=== PATIENT | female | born 1965 | race Caucasian/White ===

== ENCOUNTER → 2021-12-26 | Outpatient (CLI) | payer MEDICARE, BC ==
[2021-12-27 12:22] LABS: Candida species (DNA Probe) Positive (NEGATIVE); G. vaginalis (DNA Probe) Negative (NEGATIVE); T. vaginalis (DNA Probe) Negative (NEGATIVE)
== END ==
LOC: LAB 14:05 → LAB SHORT 14:05
PROVIDERS: Family Medicine
DX: N89.8 Other specified noninflammatory disorders of vagina (principal)
CPT/HCPCS: 87480; 87510; 87660

== ENCOUNTER 2024-08-08 08:33 | Day surgery (SDC) | payer MEDICARE, BC ==
[~2024-08-08] VITALS: Ht 180.3 cm; Wt 88.7 kg
[~2024-08-08 08:33] MED LIST: BUPRENORPHN-NA1 EACH; CLIMARA1 EACH; EZET10; GABA300; LEVSOD75 PO; Lactated Ringer's 1,000 ML IV ONE; Lidocaine 1%-Epineph 1:100000 20 ML MDV ONE; OMEP20ER; TIZA4; TRAZ50; Ventolin5 MG/1 ML
[2024-08-08] MEDS ORDERED: CeFAZolin Sodium 2,000 MG VIAL ONE (08:39)
[2024-08-08] MEDS ORDERED: Tranexamic Acid 100 ML IV ONE (08:40)
[2024-08-08] MEDS ORDERED: MONT10T (08:54)
[2024-08-08] MEDS ORDERED: ALLEGRA ALLERG180 MG PO (08:56)
[2024-08-08] MEDS ORDERED: PROG100 PO (08:57)
[2024-08-08] MEDS ORDERED: INDO50 PO (08:57)
[2024-08-08] MEDS ORDERED: MAGNESIUM OXID500 MG PO (08:58)
[2024-08-08] MEDS ORDERED: DOCU100 PO (08:58)
[2024-08-08] MEDS ORDERED: VITAMIN B122500 MC1 PO (08:59)
[2024-08-08] MEDS ORDERED: Ketorolac Tromethamine 30mg Vial ONE (09:05)
[2024-08-08] MEDS ORDERED: propofoL 40 ML IV ONE (09:05)
[2024-08-08] MEDS ORDERED: Ondansetron HCl 2 MG / ML 2ML Vial ONE (09:05)
[2024-08-08] MEDS ORDERED: Dexamethasone Sod Phos 10 MG/ML 1ML VIAL ONE (09:05)
[2024-08-08] MEDS ORDERED: FentaNYL Citrate 50 MCG/ML 2 ML Injection ONE ×2 (09:07→11:43)
[2024-08-08] MEDS ORDERED: Lactated Ringer's 1,000 ML IV ONE (09:23)
[2024-08-08] MEDS ORDERED: propofoL 100 ML IV ONE (10:25)
[2024-08-08] MEDS ORDERED: Ropivacaine 0.5% HCL/PF 5 MG/ML 30ML Vial ONE (11:59)
[2024-08-08 12:42] VITALS: BP 115/71
[2024-08-08] MEDS ORDERED: OxyCODONE HCL 5 MG TAB ONE (13:17)
--- NOTE | 2024-08-08 13:23 | NUR ---
08/08/24 1192 JUDY MARQUEZ PT HAD BEEN TOLD STAFF THAT HER PAIN WAS 6/10 BUT TOLERABLE. HOWEVER, SHE WOULD GRIMACE WHEN ADMITTING PAIN. ENCOURAGED PT TO EAT SOMETHING SO IF WE WANTED TO GIVE HER A PAIN PILL AT SOME POINT, IT WOULD BE BEST TO HAVE SOMETHING ON HER STOMACH. PT THEN ADMITTED THAT HER PAIN WAS ACTUALLY 7/10 BUT IT WAS NOW HURTING TO HER THIGH. SHE ALSO MENTIONED THAT SHE HAS A BROKEN TOE ON THE RIGHT FOOT. OCHOA ASKED IF SHE WANTED A PAIN PILL, AND PT AGREED. THEY DISCUSSED IV PAIN MEDICATION HOWEVER, PT DECLINED THIS.
== END 2024-08-08 14:04 | disposition home or self-care (01) ==
LOC: ORSCSDS 08:33
PROVIDERS: Orthopaedic Surgery Sports Medicine
PROC: 0SQC4ZZ Repair Right Knee Joint, Percutaneous Endoscopic Approach (ICD-10-PCS; principal; 2024-08-08 10:00)
DX: S83.231A Complex tear of medial meniscus, current injury, right knee, initial encounter (principal); E03.9 Hypothyroidism, unspecified; M79.7 Fibromyalgia; M32.9 Systemic lupus erythematosus, unspecified; K21.9 Gastro-esophageal reflux disease without esophagitis; J45.909 Unspecified asthma, uncomplicated; G47.33 Obstructive sleep apnea (adult) (pediatric); Z79.899 Other long term (current) drug therapy
CPT/HCPCS: A9270; J0690; J1100; J1885; J2405; J2704; J2795; J3010; J7120

== ENCOUNTER 2024-08-16 19:07 | Emergency (ER) | payer MEDICARE, BC ==
[~2024-08-16] VITALS: Ht 180.3 cm; Wt 86.2 kg
[~2024-08-16 19:07] MED LIST changes: +ALLEGRA ALLERG180 MG PO; +DOCU100 PO; +INDO50 PO; -Lactated Ringer's 1,000 ML IV ONE; -Lidocaine 1%-Epineph 1:100000 20 ML MDV ONE; +MAGNESIUM OXID500 MG PO; +MONT10T; +PROG100 PO; +VITAMIN B122500 MC1 PO
[2024-08-16 19:52] VITALS: BP 145/101
[2024-08-16 20:54] LABS: BASOPHILS ABSOLUTE AUTO 0.05 K/mm3 (0.00-0.23); BASOPHILS PERCENT AUTO 0 % (0-2); EOSINOPHILS PERCENT AUTO 1 % (0-6); Hematocrit 46.6 % (33.0-51.0); Hemoglobin 16.2 g/dL (11.5-16.0); IMMATURE GRAN ABSOLUTE AUTO 0.03 K/mm3 (0.00-0.10); IMMATURE GRAN PERCENT AUTO 0 % (0-1); LYMPHOCYTES ABSOLUTE AUTO 2.67 K/mm3 (0.84-5.20); LYMPHOCYTES PERCENT AUTO 23 % (21-46); MONOCYTES ABSOLUTE AUTO 0.61 K/mm3 (0.16-1.47); MONOCYTES PERCENT AUTO 5 % (4-13); Mean Corpuscular HGB 31.5 pg (26.0-34.0); Mean Corpuscular HGB Conc 34.8 g/dL (31.5-36.5); Mean Corpuscular Volume 91 fL (80-100); Mean Platelet Volume 8.9 fL (9.1-12.4); NEUTROPHILS ABSOLUTE AUTO 8.12 K/mm3 (1.96-9.15); NEUTROPHILS PERCENT AUTO 70 % (41-73); Platelet Count 280 K/mm3 (150-400); RDW Coefficient Variation 12.8 % (11.7-14.2); RDW Standard Deviation 42.5 fL (35.1-46.3); Red Blood Cell Count 5.15 M/mm3 (3.80-5.20); White Blood Cell Count 11.58 K/mm3 (4.00-11.30)
[2024-08-16 21:27] LABS: Albumin, Blood 4.1 g/dL (3.4-5.0); Bilirubin, Total 0.4 mg/dL (0.1-1.0); Bun/Creatinine Ratio 22.3 (12.0-20.0); Calcium, Blood 9.6 mg/dL (8.5-10.1); Creatinine, Blood 1.03 mg/dL (0.40-1.00); Globulin, Blood 4.3 g/dL (2.2-4.0); Total Protein, Blood 8.4 g/dL (6.4-8.2)
[2024-08-16] MEDS ORDERED: DiphenhydrAMINE HCl 50 MG/ML 1ML Vial IV ONE (23:40)
[2024-08-16] MEDS ORDERED: NS 1,000 ML IV SCH (23:40)
[2024-08-16] MEDS ORDERED: Prochlorperazine Edisylate 10 mg Vial IV ONE (23:40)
== END 2024-08-17 00:46 | disposition home or self-care (01) ==
LOC: ER 19:07
PROVIDERS: Student in an Organized Health Care Education/Training Program
DX: R55 Syncope and collapse (principal); M25.561 Pain in right knee; J45.909 Unspecified asthma, uncomplicated; Z88.8 Allergy status to other drugs, medicaments and biological substances; Z79.899 Other long term (current) drug therapy; Z79.890 Hormone replacement therapy
CPT/HCPCS: 70450; 70486; 73562-RT; 73630; 80053; 84484; 85025; 93005; 93010; 96374; 96375; 99284-25; J0780; J1200